=== PATIENT | female | born 1980 | race American Indian/Alaskan Native ===

== ENCOUNTER 2016-06-26 11:57 | Emergency (ER) | payer MEDICAID ==
[2016-06-26 12:49] LABS: Basophils % (Auto) 0.2 % (0.0-1.8); Eosinophils % (Auto) 2.2 % (0.0-4.3); Hematocrit 32.9 % (30.3-42.9); Hemoglobin 10.6 gm/dl (10.1-14.3); Mean Corpuscular HGB Conc 32 % (30-34); Mean Corpuscular Hemoglobin 27 pg (28-32); Mean Corpuscular Volume 85 fl (79-97); Platelet Count 355 K/mm3 (140-440); Red Blood Count 3.87 M/mm3 (3.65-5.03); White Blood Count 6.5 K/mm3 (4.5-11.0)
[2016-06-26 13:02] LABS: Albumin 3.8 g/dL (3.9-5); Albumin/Globulin Ratio 1.3 %; Alkaline Phosphatase 49 units/L (35-129); Anion Gap 18 mmol/L; Bilirubin,Total < 0.20 mg/dL (0.1-1.2); Blood Urea Nitrogen 9 mg/dL (7-17); Calcium 9.3 mg/dL (8.4-10.2); Carbon Dioxide 24 mmol/L (22-30); Chloride 103.7 mmol/L (98-107); Glucose 94 mg/dL (65-100); Lipase 13 units/L (13-60); Potassium 4.3 mmol/L (3.6-5.0); Sodium 141 mmol/L (137-145); Total Protein 6.8 g/dL (6.3-8.2)
[2016-06-26 13:13] LABS: Alanine Aminotransferase < 5 units/L (7-56)
[2016-06-26 15:26] LABS: Bilirubin,Urine NEG (Negative); Blood,Urine NEG (Negative); Ketones,Urine NEG (Negative); Leukocyte Esterase,Urine NEG (Negative); Mucus,Urine FEW /HPF; Nitrite,Urine POS (Negative); Protein,Urine <15 mg/dL mg/dL (Negative); Urobilinogen,Urine < 2.0 mg/dL (<2.0)
[2016-06-26] MEDS ORDERED: PEPCID PO ONE (16:57)
[2016-06-26] MEDS ORDERED: NORCO 5/325 PO ONE (16:57)
[2016-06-26] MEDS ORDERED: LIDOCAINE VISCOUS 2% PO ONE (16:57)
[2016-06-26] MEDS ORDERED: ALUM-MAG HYDROX-SIMETH 200-200-20MG/5ML PO ONE (16:57)
--- NOTE | 2016-06-26 17:02 | Emergency Department Report ---
HPI - General Chief Complaint: Abdominal Pain Time Seen by Provider: 06/26/16 16:47 - HPI HPI: Room 24 The patient is 36-year-old female presenting with a chief complaint of abdominal pain. Patient states she's had intermittent pain in the right upper quadrant for 4 months. Patient states she had her gallbladder removed over 7 years ago. He states the pain initially was yeast with meals now has worsened with meals. Patient denies nausea vomiting or diarrhea. Patient denies fever. The patient states she went to an emergency department 4 months ago symptoms began at had an x-ray performed. Patient states she has not been able to follow -up since. The patient currently gives her pain score of 8/10 Location: Right upper quadrant Duration: Intermittent 4 months Quality: Squeezing Severity: 8/10 Modifying factors: [see above] Context: [see above] Mode of transportation: [not driving] ED Past Medical Hx - Past Medical History Previous Medical History?: No - Surgical History Hx Cholecystectomy: Yes Additional Surgical History: X 4. TUBAL LIGATION - Family History Family history: no significant - Social History Smoking Status: Current Every Day Smoker (1/7 pack per day) Substance Use Type: Alcohol (occasional) - Medications Home Medications: Home Medications Medication Instructions Recorded Confirmed Last Taken Type Famotidine [Pepcid] 20 mg PO BID #30 tablet 06/26/16 Unknown Rx HYDROcodone/APAP 5-325 [[place] 1 - 2 each PO Q6HR PRN #10 tablet 06/26/16 Unknown Rx 5/325] ED Review of Systems ROS: Stated complaint: ABD PAIN Other details as noted in HPI Comment: All other systems reviewed and negative Constitutional: denies: chills, fever Eyes: denies: eye pain, eye discharge, vision change ENT: denies: ear pain, throat pain Respiratory: denies: cough, shortness of breath, wheezing Cardiovascular: denies: chest pain, palpitations Endocrine: no symptoms reported Gastrointestinal: abdominal pain. denies: nausea, vomiting, diarrhea Genitourinary: denies: urgency, dysuria, discharge Musculoskeletal: denies: back pain, joint swelling, arthralgia Skin: denies: rash, lesions Neurological: denies: headache, weakness, paresthesias Psychiatric: denies: anxiety, depression Hematological/Lymphatic: denies: easy bleeding, easy bruising Physical Exam - Physical Exam Vital Signs: Vital Signs 06/26/16 06/26/16 12:22 14:38 Temperature 98.1 F 98.6 F Pulse Rate 75 56 L Respiratory 16 16 Rate Blood Pressure 118/76 Blood Pressure 127/85 [Right] O2 Sat by Pulse 100 96 Oximetry Physical Exam: GENERAL: The patient is well-developed well-nourished female lying on stretcher not appearing to be in acute distress. [] HEENT: Normocephalic. Atraumatic. Extraocular motions are intact. Patient has moist mucous membranes. NECK: Supple. Trachea midline CHEST/LUNGS: Clear to auscultation. There is no respiratory distress noted. HEART/CARDIOVASCULAR: Regular. There is no tachycardia. There is no gallop rub or murmur. ABDOMEN: Abdomen is soft, with mild discomfort to palpation in the right upper quadrant. There is no rebound or guarding. There is no tenderness to palpation elsewhere in the abdomen. Patient has normal bowel sounds. There is no abdominal distention. SKIN: There is no rash. There is no edema. There is no diaphoresis. NEURO: The patient is awake, alert, and oriented. The patient is cooperative. The patient has normal speech MUSCULOSKELETAL: There is no evidence of acute injury. ED Course Vital Signs 06/26/16 06/26/16 12:22 14:38 Temperature 98.1 F 98.6 F Pulse Rate 75 56 L Respiratory 16 16 Rate Blood Pressure 118/76 Blood Pressure 127/85 [Right] O2 Sat by Pulse 100 96 Oximetry ED Medical Decision Making - Lab Data Result diagrams: 06/26/16 12:29 06/26/16 12:29 Laboratory Tests 06/26/16 06/26/16 06/26/16 12:29 12:29 12:29 WBC 6.5 RBC 3.87 Hgb 10.6 Hct 32.9 MCV 85 MCH 27 L MCHC 32 RDW 16.0 H Plt Count 355 Lymph % (Auto) 37.0 H [place] % (Auto) 8.9 H Eos % (Auto) 2.2 Baso % (Auto) 0.2 Lymph # 2.4 [place] # 0.6 Eos # 0.1 Baso # 0.0 Seg Neutrophils % 51.7 Seg Neutrophils # 3.4 Sodium 141 Potassium 4.3 Chloride 103.7 Carbon Dioxide 24 Anion Gap 18 BUN 9 Creatinine 0.5 L Estimated GFR > 60 BUN/Creatinine Ratio 18.00 Glucose 94 Calcium 9.3 Total Bilirubin < 0.20 AST 19 ALT < 5 L Alkaline Phosphatase 49 Total Protein 6.8 Albumin 3.8 L Albumin/Globulin Ratio 1.3 Lipase 13 HCG, Qual Negative Urine Color Urine Turbidity Urine pH Ur Specific [place] Urine Protein Urine Glucose (UA) Urine Ketones Urine Blood Urine Nitrite Urine Bilirubin Urine Urobilinogen Ur Leukocyte Esterase Urine WBC (Auto) Urine RBC (Auto) U Epithel Cells (Auto) Amorphous Crystals Urine Mucus 06/26/16 14:45 WBC RBC Hgb Hct MCV MCH MCHC RDW Plt Count Lymph % (Auto) [place] % (Auto) Eos % (Auto) Baso % (Auto) Lymph # [place] # Eos # Baso # Seg Neutrophils % Seg Neutrophils # Sodium Potassium Chloride Carbon Dioxide Anion Gap BUN Creatinine Estimated GFR BUN/Creatinine Ratio Glucose Calcium Total Bilirubin AST ALT Alkaline Phosphatase Total Protein Albumin Albumin/Globulin Ratio Lipase HCG, Qual Urine Color Yellow Urine Turbidity Cloudy Urine pH 7.0 Ur Specific [place] 1.017 Urine Protein <15 mg/dl Urine Glucose (UA) Neg Urine Ketones Neg Urine Blood Neg Urine Nitrite Pos Urine Bilirubin Neg Urine Urobilinogen < 2.0 Ur Leukocyte Esterase Neg Urine WBC (Auto) 0.0 Urine RBC (Auto) 14.0 U Epithel Cells (Auto) 3.0 Amorphous Crystals Few Urine Mucus Few - Radiology Data Radiology results: image reviewed (abdominal x-ray) interpreted by me: Abdominal x-ray upright-no free air - Differential Diagnosis peptic ulcer disease, gastritis, bowel perforation Critical care attestation.: If time is entered above; I have spent that time in minutes in the direct care of this critically ill patient, excluding procedure time. ED Disposition Clinical Impression: Right upper quadrant abdominal pain Disposition: DISCHARGED TO HOME OR SELFCARE Is pt being admited?: No Does the pt Need Aspirin: No Condition: Stable Instructions: Peptic Ulcer (ED), Abdominal Pain (ED) Additional Instructions: Return to the emergency department immediately should you develop worsening symptoms, fever, inability to tolerate food or liquid or any other concerns. Prescriptions: Famotidine [Pepcid] 20 mg PO BID #30 tablet HYDROcodone/APAP 5-325 [[place] 5/325] 1 - 2 each PO Q6HR PRN #10 tablet PRN Reason: Pain Referrals: ELIZABETH EASTMAN MD [Staff Physician] - 3-5 Days (Dr. Eastman is a primary physician. Please follow up with him to be established as a patient.) GRIFFIN SHEPARD MD [Staff Physician] - 3-5 Days (Dr. 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 Please follow up with him for further evaluation) Time of Disposition: 17:40
[2016-06-26 18:01] VITALS: BP 133/82
--- NOTE | 2016-06-27 09:51 | XRay Report ---
SUPINE KUB: History: Right upper quadrant abdominal pain. The abdominal gas pattern is unremarkable. No masses or organomegaly is identified and there is no gross evidence of free air or fluid. No significant soft tissue calcifications are noted. Cholecystectomy changes are noted. IMPRESSION: Normal study.
== END 2016-06-26 18:01 | disposition home or self-care (01) ==
LOC: ED 11:57
DX: R10.11 Right upper quadrant pain (principal); F17.200 Nicotine dependence, unspecified, uncomplicated; Z90.49 Acquired absence of other specified parts of digestive tract
CPT/HCPCS: 36415; 74000; 80053; 81001; 83690; 84703; 85025; 99284

== ENCOUNTER 2018-07-06 15:04 | Emergency (ER) | payer MEDICAID ==
[2018-07-06 15:46] VITALS: BP 123/79
--- NOTE | 2018-07-06 15:48 | Emergency Department Report ---
ED ENT HPI - General Chief complaint: Earache Stated complaint: EARACHE/HEADACHE Time Seen by Provider: 07/06/18 15:43 Source: patient Mode of arrival: Ambulatory Limitations: No Limitations - History of Present Illness Initial comments: This is a 38-year-old female nontoxic well in appearance with no signs of distress presents to the ED with complaint of right earache. Patient denies any hearing loss. Denies any mastoid tenderness. Denies any fever, chills, headache, nausea, vomiting, chest pain or SOB. Denies any other complaints. Denies any allergies. MD complaint: ear pain -: days(s) (1) Location: R ear Severity: mild Severity scale (0 -10): 8 Quality: aching Consistency: constant Improves with: none Worsens with: none Associated Symptoms: denies: fever, cough, gum swelling, toothache, pain with swallowing, sore throat, tinnitus, hearing loss, discharge from ear, rhinorrhea - Related Data Previous Rx's Medication Instructions Recorded Last Taken Type Famotidine [Pepcid] 20 mg PO BID #30 tablet 06/26/16 Unknown Rx HYDROcodone/APAP 5-325 [[place] 1 - 2 each PO Q6HR PRN #10 tablet 06/26/16 Unknown Rx 5/325] Amoxicillin [Amoxicillin TAB] 875 mg PO BID #20 tablet 07/06/18 Unknown Rx Ibuprofen [Motrin] 600 mg PO Q8H PRN #20 tablet 07/06/18 Unknown Rx Allergies Allergy/AdvReac Type Severity Reaction Status Date / Time No Known Allergies Allergy Unverified 06/26/16 12:21 ED Dental HPI - General Chief complaint: Earache Stated complaint: EARACHE/HEADACHE Time Seen by Provider: 07/06/18 15:43 Source: patient Mode of arrival: Ambulatory Limitations: No Limitations - Related Data Previous Rx's Medication Instructions Recorded Last Taken Type Famotidine [Pepcid] 20 mg PO BID #30 tablet 06/26/16 Unknown Rx HYDROcodone/APAP 5-325 [[place] 1 - 2 each PO Q6HR PRN #10 tablet 06/26/16 Unknown Rx 5/325] Amoxicillin [Amoxicillin TAB] 875 mg PO BID #20 tablet 07/06/18 Unknown Rx Ibuprofen [Motrin] 600 mg PO Q8H PRN #20 tablet 07/06/18 Unknown Rx Allergies Allergy/AdvReac Type Severity Reaction Status Date / Time No Known Allergies Allergy Unverified 06/26/16 12:21 ED Review of Systems ROS: Stated complaint: EARACHE/HEADACHE Other details as noted in HPI Constitutional: denies: chills, fever Eyes: denies: eye pain, eye discharge, vision change ENT: ear pain. denies: throat pain Respiratory: denies: cough, shortness of breath, wheezing Cardiovascular: denies: chest pain, palpitations Endocrine: no symptoms reported Gastrointestinal: denies: abdominal pain, nausea, diarrhea Genitourinary: denies: urgency, dysuria, discharge Musculoskeletal: denies: back pain, joint swelling, arthralgia Skin: denies: rash, lesions Neurological: denies: headache, weakness, paresthesias Psychiatric: denies: anxiety, depression Hematological/Lymphatic: denies: easy bleeding, easy bruising ED Past Medical Hx - Past Medical History Previous Medical History?: No - Surgical History Past Surgical History?: Yes Hx Cholecystectomy: Yes Additional Surgical History: X 4. TUBAL LIGATION - Social History Smoking Status: Current Every Day Smoker (1/7 pack per day) Substance Use Type: Alcohol (occasional) - Medications Home Medications: Home Medications Medication Instructions Recorded Confirmed Last Taken Type Famotidine [Pepcid] 20 mg PO BID #30 tablet 06/26/16 Unknown Rx HYDROcodone/APAP 5-325 [[place] 1 - 2 each PO Q6HR PRN #10 tablet 06/26/16 Unknown Rx 5/325] Amoxicillin [Amoxicillin TAB] 875 mg PO BID #20 tablet 07/06/18 Unknown Rx Ibuprofen [Motrin] 600 mg PO Q8H PRN #20 tablet 07/06/18 Unknown Rx ED Physical Exam - General Limitations: No Limitations General appearance: alert, in no apparent distress - Head Head exam: Present: atraumatic, normocephalic - Eye Eye exam: Present: normal appearance - Expanded ENT Exam Expanded Ear exam: Present: normal external inspection TM/Canal exam: Erythema: Right TM, Bulging: Right TM Mouth exam: Present: normal external inspection. Absent: drooling, trismus, muffled voice Teeth exam: Present: normal inspection Throat exam: Positive: normal inspection - Neck Neck exam: Present: normal inspection, full ROM - Extremities Exam Extremities exam: Present: normal inspection, full ROM - Back Exam Back exam: Present: normal inspection, full ROM - Neurological Exam Neurological exam: Present: alert, oriented X3 - Psychiatric Psychiatric exam: Present: normal affect, normal mood ED Course - Reevaluation(s) Reevaluation #1: 07/06/18 15:46 Patient is speaking in full sentences with no signs of distress noted. ED Medical Decision Making - Medical Decision Making Patient was instructed to Follow-up with a primary care doctor in 3-5 days or if symptoms worsen and continue return to emergency room as soon as possible. At time of discharge, the patient does not seem toxic or ill in appearance. No acute signs of distress noted. Patient agrees to discharge treatment plan of care. No further questions noted by the patient. Critical care attestation.: If time is entered above; I have spent that time in minutes in the direct care of this critically ill patient, excluding procedure time. ED Disposition Clinical Impression: Right otitis media Disposition: DC-01 TO HOME OR SELFCARE Is pt being admited?: No Does the pt Need Aspirin: No Condition: Stable Instructions: Otitis Media (ED) Additional Instructions: Follow-up with a primary care doctor in 3-5 days or if symptoms worsen and continue return to the emergency department as soon as possible. Prescriptions: Amoxicillin [Amoxicillin TAB] 875 mg PO BID #20 tablet Ibuprofen [Motrin] 600 mg PO Q8H PRN #20 tablet PRN Reason: Pain Referrals: PRIMARY CARE, [Referring] - 3-5 Days ELIZABETH REID MD [Staff Physician] - 3-5 Days [facility] [Outside] - 3-5 Days [facility] [Outside] - 3-5 Days Forms: Work/School Release Form(ED)
== END 2018-07-06 16:03 | disposition home or self-care (01) ==
LOC: ED 15:04
DX: H66.91 Otitis media, unspecified, right ear (principal); F17.200 Nicotine dependence, unspecified, uncomplicated; Z90.49 Acquired absence of other specified parts of digestive tract; Z98.51 Tubal ligation status
CPT/HCPCS: 99282

== ENCOUNTER 2018-10-25 09:26 | Emergency (ER) | payer SELFPAY ==
[2018-10-25 09:32] VITALS: BP 137/88
--- NOTE | 2018-10-25 11:19 | Emergency Department Report ---
ED Upper Extremity Inj HPI - General Chief Complaint: Extremity Injury, Upper Stated Complaint: BI HAND NUMB Time Seen by Provider: 10/25/18 10:10 Source: patient Mode of arrival: Ambulatory Limitations: No Limitations - History of Present Illness Initial Comments: This is a 38-year-old female nontoxic, well nourished in appearance, no acute signs of distress presents to the ED with c/o of intermittent acute on chronic bilateral wrist pain and tingling/numbness sensation to bilateral 1st, 2nd and 3rd fingers. Patient denies any trauma. Patient denies any fever, chills, nausea, vomiting, chest pain, shortness of breath, headache, stiff neck. Patient denies any joint swelling or joint redness. 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 Patient denies decreased range of motion. Patient denies any allergies or significant past medical history. MD Complaint: Injury to:: left, right, wrist -: year(s) Other Extremity Injury: Wrist: Left, Right Other Injuries: none Severity scale (0 -10): 3 Improves With: immobilization Worsens With: movement of extremity Associated Symptoms: denies other symptoms. denies: weakness, numbness, neck pain, suspects foreign body, nausea/vomiting, heard/felt popping sensat - Related Data Previous Rx's Medication Instructions Recorded Last Taken Type Famotidine [Pepcid] 20 mg PO BID #30 tablet 06/26/16 Unknown Rx HYDROcodone/APAP 5-325 [[place] 1 - 2 each PO Q6HR PRN #10 tablet 06/26/16 Unknown Rx 5/325] Amoxicillin [Amoxicillin TAB] 875 mg PO BID #20 tablet 07/06/18 Unknown Rx Ibuprofen [Motrin] 600 mg PO Q8H PRN #20 tablet 07/06/18 Unknown Rx Ibuprofen [Motrin] 600 mg PO Q8H PRN #20 tablet 10/25/18 Unknown Rx Allergies Allergy/AdvReac Type Severity Reaction Status Date / Time No Known Allergies Allergy Unverified 06/26/16 12:21 ED Review of Systems ROS: Stated complaint: BI HAND NUMB Other details as noted in HPI Constitutional: denies: chills, fever Eyes: denies: eye pain, eye discharge, vision change ENT: denies: ear pain, throat pain Respiratory: denies: cough, shortness of breath, wheezing Cardiovascular: denies: chest pain, palpitations Endocrine: no symptoms reported Gastrointestinal: denies: abdominal pain, nausea, diarrhea Genitourinary: denies: urgency, dysuria, discharge Musculoskeletal: arthralgia. denies: back pain, joint swelling Skin: denies: rash, lesions Neurological: denies: headache, weakness, paresthesias Psychiatric: denies: anxiety, depression Hematological/Lymphatic: denies: easy bleeding, easy bruising ED Past Medical Hx - Past Medical History Previous Medical History?: No - Surgical History Past Surgical History?: Yes Hx Cholecystectomy: Yes Additional Surgical History: X 4. TUBAL LIGATION - Social History Smoking Status: Current Every Day Smoker Substance Use Type: None - Medications Home Medications: Home Medications Medication Instructions Recorded Confirmed Last Taken Type Famotidine [Pepcid] 20 mg PO BID #30 tablet 06/26/16 Unknown Rx HYDROcodone/APAP 5-325 [[place] 1 - 2 each PO Q6HR PRN #10 tablet 06/26/16 Unknown Rx 5/325] Amoxicillin [Amoxicillin TAB] 875 mg PO BID #20 tablet 07/06/18 Unknown Rx Ibuprofen [Motrin] 600 mg PO Q8H PRN #20 tablet 07/06/18 Unknown Rx Ibuprofen [Motrin] 600 mg PO Q8H PRN #20 tablet 10/25/18 Unknown Rx ED Physical Exam - General Limitations: No Limitations General appearance: alert, in no apparent distress - Head Head exam: Present: atraumatic, normocephalic - Extremities Exam Extremities exam: Present: normal inspection, full ROM, normal capillary refill. Absent: tenderness, joint swelling, calf tenderness - Expanded Upper Extremity Exam Left General: Present: normal inspection (bilateral exam) Shoulder Exam: Present: normal inspection (bilateral exam), full ROM (bilateral exam). Absent: tenderness (bilateral exam), swelling (bilateral exam) Upper Arm exam: Present: normal inspection (bilateral exam), full ROM (bilateral exam). Absent: tenderness (bilateral exam), swelling (bilateral exam) Elbow exam: Present: normal inspection (bilateral exam), full ROM (bilateral exam). Absent: tenderness (bilateral exam), swelling (bilateral exam) Forearm Wrist exam: Present: normal inspection (bilateral exam), full ROM (bilateral exam). Absent: tenderness (bilateral exam), swelling (bilateral exam), abrasion (bilateral exam), laceration (bilateral exam), ecchymosis (bilateral exam), deformity (bilateral exam), crepidus (bilateral exam), dislocation (bilateral exam), erythema (bilateral exam), tenderness over anatomical snuff box (bilateral exam), pain with axial thumb loading (bilateral exam) Hand Wrist exam: Present: normal inspection (bilateral exam), full ROM (bilateral exam). Absent: tenderness (bilateral exam), swelling (bilateral exam) Vascular: Present: vascular compromise (bilateral exam), normal capillary refill (bilateral exam) - Back Exam Back exam: Present: normal inspection, full ROM - Neurological Exam Neurological exam: Present: alert, oriented X3, normal gait - Psychiatric Psychiatric exam: Present: normal affect, normal mood - Skin Skin exam: Present: warm, dry, intact, normal color. Absent: rash - Other Other exam information: Positive phalens test to bilateral wrist ED Course Vital Signs 10/25/18 09:29 Temperature 97.9 F Pulse Rate 82 Respiratory 18 Rate Blood Pressure 137/88 O2 Sat by Pulse 99 Oximetry - Reevaluation(s) Reevaluation #1: 10/25/18 11:18 Patient is speaking in full sentences with no signs of distress noted. ED Medical Decision Making - Medical Decision Making This is a 38-year-old female that presents with carpal tunnel to bilateral wrists Patient is stable and was examined by me. I referred patient to an orthopedic doctor for further evaluation for possible MRI. Patient does have normal gait with no tenderness and no joint swelling. No ecchymosis. no joint redness or swelling. Not warm to touch. No signs of cellulites present. Patient was instructed to RICE therapy. Patient is discharged with Motrin. At time of discharge, the patient does not seem toxic or ill in appearance. No acute signs of distress noted. Patient agrees to discharge treatment plan of care. No further questions noted by the patient. Critical care attestation.: If time is entered above; I have spent that time in minutes in the direct care of this critically ill patient, excluding procedure time. ED Disposition Clinical Impression: Bilateral carpal tunnel syndrome Disposition: DC-01 TO HOME OR SELFCARE Is pt being admited?: No Does the pt Need Aspirin: No Condition: Stable Instructions: Carpal Tunnel Syndrome (ED) Additional Instructions: Follow-up with a orthopedic doctor in 3-5 days or if symptoms worsen and continue return to emergency room as soon as possible. Prescriptions: Ibuprofen [Motrin] 600 mg PO Q8H PRN #20 tablet PRN Reason: Pain Referrals: PRIMARY CARE, [Referring] - 3-5 Days SHAWNA BARROSO MD [Staff Physician] - 3-5 Days [facility] [Outside] - 3-5 Days Forms: Work/School Release Form(ED)
== END 2018-10-25 11:51 | disposition home or self-care (01) ==
LOC: ED 09:26
DX: G56.03 Carpal tunnel syndrome, bilateral upper limbs (principal)
CPT/HCPCS: 99282

== ENCOUNTER 2019-05-07 02:59 | Emergency (ER) | payer SELFPAY ==
--- NOTE | 2019-05-07 06:05 | Emergency Department Report ---
ED General Adult HPI - General Chief complaint: Urogenital-Female Stated complaint: BILATERAL BREAST SORENESS Source: patient Mode of arrival: Ambulatory Limitations: No Limitations - History of Present Illness Initial comments: Patient is a 39-year-old -Swiss female who presents to the ED with complaint of persistent bilateral breast pain for the last 1 week. Patient denies traumatic injury, nausea, vomiting, chest pain, shortness of breath, fever, chills, dizziness, headache, cough, sore throat, nasal and sinus congestion, palpitations, abdominal pain or diarrhea. MD Complaint: Bilateral breast pain -: Sudden, week(s) (1) Location: chest (bilateral breast) Radiation: non-radiation Severity scale (0 -10): 2 Quality: aching, sharp Consistency: constant Improves with: none Worsens with: none Associated Symptoms: denies other symptoms. denies: confusion, chest pain, cough, diaphoresis, fever/chills, headaches, loss of appetite, malaise, nausea/vomiting, rash, seizure, shortness of breath, syncope, weakness Treatments Prior to Arrival: none - Related Data Previous Rx's Medication Instructions Recorded Last Taken Type Famotidine [Pepcid] 20 mg PO BID #30 tablet 06/26/16 Unknown Rx HYDROcodone/APAP 5-325 [[place] 1 - 2 each PO Q6HR PRN #10 tablet 06/26/16 Unknown Rx 5/325] Amoxicillin [Amoxicillin TAB] 875 mg PO BID #20 tablet 07/06/18 Unknown Rx Ibuprofen [Motrin] 600 mg PO Q8H PRN #20 tablet 07/06/18 Unknown Rx Ibuprofen [Motrin] 600 mg PO Q8H PRN #20 tablet 10/25/18 Unknown Rx Ibuprofen [Motrin] 800 mg PO Q8HR PRN #30 tablet 05/07/19 Unknown Rx Allergies Allergy/AdvReac Type Severity Reaction Status Date / Time No Known Allergies Allergy Unverified 06/26/16 12:21 ED Review of Systems ROS: Stated complaint: BILATERAL BREAST SORENESS Other details as noted in HPI Constitutional: denies: chills, fever Eyes: denies: eye pain, eye discharge, vision change ENT: denies: ear pain, throat pain Respiratory: denies: cough, shortness of breath, wheezing Cardiovascular: other (Bilateral breast pain). denies: chest pain, palpitations Endocrine: no symptoms reported Gastrointestinal: denies: abdominal pain, nausea, diarrhea Genitourinary: denies: urgency, dysuria, discharge Musculoskeletal: denies: back pain, joint swelling, arthralgia Skin: denies: rash, lesions Neurological: denies: headache, weakness, paresthesias Psychiatric: denies: anxiety, depression Hematological/Lymphatic: denies: easy bleeding, easy bruising ED Past Medical Hx - Past Medical History Previous Medical History?: No - Surgical History Past Surgical History?: Yes Hx Cholecystectomy: Yes Additional Surgical History: X 4. TUBAL LIGATION - Social History Smoking Status: Current Every Day Smoker Substance Use Type: Marijuana - Medications Home Medications: Home Medications Medication Instructions Recorded Confirmed Last Taken Type Famotidine [Pepcid] 20 mg PO BID #30 tablet 06/26/16 Unknown Rx HYDROcodone/APAP 5-325 [[place] 1 - 2 each PO Q6HR PRN #10 tablet 06/26/16 Unknown Rx 5/325] Amoxicillin [Amoxicillin TAB] 875 mg PO BID #20 tablet 07/06/18 Unknown Rx Ibuprofen [Motrin] 600 mg PO Q8H PRN #20 tablet 07/06/18 Unknown Rx Ibuprofen [Motrin] 600 mg PO Q8H PRN #20 tablet 10/25/18 Unknown Rx Ibuprofen [Motrin] 800 mg PO Q8HR PRN #30 tablet 05/07/19 Unknown Rx ED Physical Exam - General Limitations: No Limitations General appearance: alert, in no apparent distress - Head Head exam: Present: atraumatic, normocephalic, normal inspection - Eye Eye exam: Present: normal appearance, PERRL, EOMI Pupils: Present: normal accommodation - ENT ENT exam: Present: normal exam, normal orophraynx, mucous membranes moist, TM's normal bilaterally, normal external ear exam - Neck Neck exam: Present: normal inspection, full ROM - Respiratory Respiratory exam: Present: normal lung sounds bilaterally, chest wall tenderness (Palpable bilateral breast tenderness). Absent: respiratory distress, wheezes, rales, rhonchi - Cardiovascular Cardiovascular Exam: Present: regular rate, normal rhythm, normal heart sounds, other (Female RN design assembler present during the breast exam). Absent: systolic murmur, diastolic murmur, rubs, gallop - GI/Abdominal GI/Abdominal exam: Present: soft, normal bowel sounds. Absent: tenderness, guarding, hyperactive bowel sounds, hypoactive bowel sounds, organomegaly - Extremities Exam Extremities exam: Present: normal inspection, full ROM, normal capillary refill - Back Exam Back exam: Present: normal inspection, full ROM. Absent: tenderness, CVA tenderness (R), muscle spasm, vertebral tenderness - Neurological Exam Neurological exam: Present: alert, oriented X3, CN II-XII intact, normal gait, reflexes normal - Psychiatric Psychiatric exam: Present: normal affect, normal mood - Skin Skin exam: Present: warm, dry, intact, normal color. Absent: rash ED Medical Decision Making - Medical Decision Making This is a 39-year-old female who presented to the ED with complaint of acute onset persistent nontraumatic bilateral breast pain for 1 week. In the ED, patient is alert and oriented x3 and is not in distress. Patient was discharged home on medications for pain and advised to follow-up with ADULT PROTECTIVE CASEWORKER physician in 5 to 7 days for reevaluation. Patient was also advised to consider having a mammogram to rule out any life-threatening emergency. Patient was advised to return to the ED immediately if symptoms get worse. - Differential Diagnosis Fibrocystic breast disease; Fibrocystic breast changes Critical care attestation.: If time is entered above; I have spent that time in minutes in the direct care of this critically ill patient, excluding procedure time. ED Disposition Clinical Impression: Fibrocystic breast changes of both breasts, Pain of both breasts Disposition: TO HOME OR SELFCARE Is pt being admited?: No Does the pt Need Aspirin: No Condition: Stable Instructions: Chest Pain (ED) Additional Instructions: Take pain medication as needed, follow-up with your ADULT PROTECTIVE CASEWORKER physician as advised. Return to the ED immediately if symptoms get worse. Prescriptions: Ibuprofen [Motrin] 800 mg PO Q8HR PRN #30 tablet PRN Reason: Pain , Severe (7-10) Referrals: JUAN DANIEL ELIAS MD [Staff Physician] - 3-5 Days Time of Disposition: 06:02 Print Language: AMERICAN
[2019-05-07 06:12] VITALS: BP 125/85
== END 2019-05-07 06:10 | disposition home or self-care (01) ==
LOC: ED 02:59
DX: N60.12 Diffuse cystic mastopathy of left breast (principal); N60.11 Diffuse cystic mastopathy of right breast; F17.200 Nicotine dependence, unspecified, uncomplicated; F12.10 Cannabis abuse, uncomplicated; Z98.51 Tubal ligation status; Z98.890 Other specified postprocedural states; Z79.899 Other long term (current) drug therapy
CPT/HCPCS: 99282

== ENCOUNTER 2020-11-30 17:21 | Emergency (ER) | payer MEDICAID, OTHER ==
[2020-11-30] MEDS ORDERED: IBUPROFEN 600 MG TAB PO ONE (19:46)
[2020-11-30] MEDS ORDERED: ACETAMINOPHEN 500 MG TAB PO ONE (19:46)
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
[2020-11-30 21:21] VITALS: BP 127/78
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
== END 2020-11-30 22:23 | disposition home or self-care (01) ==
LOC: ED 17:21
DX: M62.830 Muscle spasm of back (principal); S43.91XA Sprain of unspecified parts of right shoulder girdle, initial encounter; Z90.49 Acquired absence of other specified parts of digestive tract; F17.200 Nicotine dependence, unspecified, uncomplicated; V89.2XXA Person injured in unspecified motor-vehicle accident, traffic, initial encounter; Y93.89 Activity, other specified; Y92.89 Other specified places as the place of occurrence of the external cause; Y99.8 Other external cause status
CPT/HCPCS: 72040; 99283

== ENCOUNTER 2021-02-25 21:56 | Emergency (ER) | payer MEDICAID ==
[2021-02-25 23:52] VITALS: BP 136/96
[2021-02-26] MEDS ORDERED: FAMOTIDINE 20 MG TAB PO ONE (02:04)
[2021-02-26] MEDS ORDERED: ONDANSETRON 4 MG ODT TAB PO ONE (02:04)
[2021-02-26] MEDS ORDERED: IBUPROFEN 600 MG TAB PO ONE (02:04)
[2021-02-26] MEDS ORDERED: ACETAMINOPHEN 500 MG TAB PO ONE (02:04)
--- NOTE | 2021-02-26 02:53 | XRay Report ---
CHEST 1 VIEW INDICATION / CLINICAL INFORMATION: COUGH, FEVER, CHILLS. COMPARISON: None available. FINDINGS: SUPPORT DEVICES: None. HEART / MEDIASTINUM: No significant abnormality. LUNGS / PLEURA: There is slight interstitial prominence throughout both lungs. Appearance is nonspeci fic, but can be seen with very mild viral pneumonia. No focal consolidation noted. No pneumothorax. ADDITIONAL FINDINGS: No significant additional findings. IMPRESSION: 1. Slight bilateral interstitial prominence a nonspecific. Appearance could be due to mild viral pneu monia and correlation with Covid status is recommended. Signer Name: Sylvia Franklin MD Signed: 02/26/2021 2:49 AM Workstation Name: [id number]
--- NOTE | 2021-02-26 04:27 | Emergency Department Report ---
- General Chief Complaint: Upper Respiratory Infection Stated Complaint: BODY SORE AND LIGHTHEADED Source: patient Mode of arrival: Ambulatory Limitations: No Limitations - History of Present Illness Initial Comments: Patient is a 40-year-old -Maltese female with no past medical history presented to the ED with complaint of acute onset persistent nasal and sinus congestion, frontal sinus pressure, diffuse body aches and pains and dry cough with fever and chills for the last 3 days, worse in the last 12 hours. Patient states that she has not been able to sleep because of worsening chills and fever and body aches and pains. Patient states that no one else at home is at similar symptoms. Patient also states that she is fully vaccinated against COVID-19 viral infection. Patient denies dizziness, syncope, nausea, vomiting, diarrhea, dysuria, urinary frequency and urgency, chest pain, shortness of breath, abdominal pain or sore throat. MD Complaint: cough, rhinorrhea, nasal congestion, sinus pain, other (Diffuse body aches and pains, fever and chills) -: Sudden, days(s) (3) Severity: severe Severity scale (0 -10): 7 Quality: sharp, aching Consistency: constant Improves With: nothing Worsens With: nothing Associated Symptoms: denies other symptoms, fever, chills, myalgias, headache, rhinorrhea, nasal congestion, cough. denies: diaphoresis, sore throat, stiff neck, chest pain, abdominal pain, nausea, vomiting, diarrhea, dysuria, rash, confusion, right sweats, weight loss, hoarseness, ear pain, other - Related Data Previous Rx's Medication Instructions Recorded Last Taken Type Famotidine [Pepcid] 20 mg PO BID #30 tablet 06/26/16 Unknown Rx HYDROcodone/APAP 5-325 [[place] 1 - 2 each PO Q6HR PRN #10 tablet 06/26/16 Unknown Rx 5/325] Amoxicillin [Amoxicillin TAB] 875 mg PO BID #20 tablet 07/06/18 Unknown Rx Ibuprofen [Motrin] 600 mg PO Q8H PRN #20 tablet 07/06/18 Unknown Rx Ibuprofen [Motrin] 600 mg PO Q8H PRN #20 tablet 10/25/18 Unknown Rx Baclofen 20 mg PO Q12H PRN #20 tablet 11/30/20 Unknown Rx Ibuprofen [Motrin 800 MG tab] 800 mg PO Q8HR PRN #30 tablet 11/30/20 Unknown Rx Acetaminophen [Tylenol] 500 mg PO Q6HR PRN #40 tablet 02/26/21 Unknown Rx Azithromycin [Zithromax Z-HERMES] 250 mg PO DAILY #6 tablet 02/26/21 Unknown Rx Benzonatate [Tessalon Perles] 100 mg PO Q8HR #30 capsule 02/26/21 Unknown Rx Cetirizine HCl [Zyrtec 10mg tab] 10 mg PO DAILY #30 tablet 02/26/21 Unknown Rx Promethazine [Phenergan] 25 mg PO Q6HR PRN #30 tab 02/26/21 Unknown Rx Allergies Allergy/AdvReac Type Severity Reaction Status Date / Time No Known Allergies Allergy Unverified 06/26/16 12:21 ED Review of Systems ROS: Stated complaint: BODY SORE AND LIGHTHEADED Other details as noted in HPI Constitutional: chills, fever, malaise Eyes: denies: eye pain, eye discharge, vision change ENT: congestion. denies: ear pain, throat pain Respiratory: cough. denies: shortness of breath, wheezing Cardiovascular: denies: chest pain, palpitations Endocrine: no symptoms reported Gastrointestinal: denies: abdominal pain, nausea, diarrhea Genitourinary: denies: urgency, dysuria, discharge Musculoskeletal: arthralgia, myalgia. denies: back pain, joint swelling Skin: denies: rash, lesions Neurological: denies: headache, weakness, paresthesias Psychiatric: denies: anxiety, depression Hematological/Lymphatic: denies: easy bleeding, easy bruising ED Past Medical Hx - Past Medical History Previous Medical History?: No - Surgical History Past Surgical History?: Yes Hx Cholecystectomy: Yes Additional Surgical History: X 4. TUBAL LIGATION. SALLY - Social History Smoking Status: Current Some Day Smoker - Medications Home Medications: Home Medications Medication Instructions Recorded Confirmed Last Taken Type Famotidine [Pepcid] 20 mg PO BID #30 tablet 06/26/16 Unknown Rx HYDROcodone/APAP 5-325 [[place] 1 - 2 each PO Q6HR PRN #10 tablet 06/26/16 Unknown Rx 5/325] Amoxicillin [Amoxicillin TAB] 875 mg PO BID #20 tablet 07/06/18 Unknown Rx Ibuprofen [Motrin] 600 mg PO Q8H PRN #20 tablet 07/06/18 Unknown Rx Ibuprofen [Motrin] 600 mg PO Q8H PRN #20 tablet 10/25/18 Unknown Rx Baclofen 20 mg PO Q12H PRN #20 tablet 11/30/20 Unknown Rx Ibuprofen [Motrin 800 MG tab] 800 mg PO Q8HR PRN #30 tablet 11/30/20 Unknown Rx Acetaminophen [Tylenol] 500 mg PO Q6HR PRN #40 tablet 02/26/21 Unknown Rx Azithromycin [Zithromax Z-HERMES] 250 mg PO DAILY #6 tablet 02/26/21 Unknown Rx Benzonatate [Tessalon Perles] 100 mg PO Q8HR #30 capsule 02/26/21 Unknown Rx Cetirizine HCl [Zyrtec 10mg tab] 10 mg PO DAILY #30 tablet 02/26/21 Unknown Rx Promethazine [Phenergan] 25 mg PO Q6HR PRN #30 tab 02/26/21 Unknown Rx ED Physical Exam - General Limitations: No Limitations General appearance: alert, in no apparent distress - Head Head exam: Present: atraumatic, normocephalic, normal inspection - Eye Eye exam: Present: normal appearance, PERRL, EOMI Pupils: Present: normal accommodation - ENT ENT exam: Present: mucous membranes moist, TM's normal bilaterally, normal external ear exam, other (Grossly congested nasal passages; palpable frontal sinus tenderness) - Neck Neck exam: Present: normal inspection, full ROM. Absent: tenderness - Respiratory Respiratory exam: Present: normal lung sounds bilaterally. Absent: respiratory distress, wheezes, rales, rhonchi, chest wall tenderness, accessory muscle use, decreased breath sounds - Cardiovascular Cardiovascular Exam: Present: regular rate, normal rhythm, normal heart sounds. Absent: systolic murmur, diastolic murmur, rubs, gallop - GI/Abdominal GI/Abdominal exam: Present: soft, normal bowel sounds. Absent: tenderness, guarding, rebound, hyperactive bowel sounds - Extremities Exam Extremities exam: Present: normal inspection, full ROM, normal capillary refill - Back Exam Back exam: Present: normal inspection, full ROM. Absent: tenderness, CVA tenderness (R), CVA tenderness (L), muscle spasm, paraspinal tenderness, vertebral tenderness - Neurological Exam Neurological exam: Present: alert, oriented X3, CN II-XII intact, normal gait, reflexes normal - Psychiatric Psychiatric exam: Present: normal affect, normal mood - Skin Skin exam: Present: warm, dry, intact, normal color. Absent: rash ED Course Vital Signs 02/25/21 23:43 Temperature 100.0 F H Pulse Rate 94 H Respiratory 20 Rate Blood Pressure 136/96 [Right] O2 Sat by Pulse 97 Oximetry ED Medical Decision Making - Radiology Data Radiology results: report reviewed, image reviewed [facility] [address] [place] [address] XRay Report Signed Patient: HOWIE CASTILLO MR#: [id number] : 1980 Acct:[id number] Age/Sex: 40 / F ADM Date: 02/25/21 Loc: ED Attending Dr: Ordering Physician: STEPHON MORSE Date of Service: 02/26/21 Procedure(s): XR chest 1V ap Accession Number(s): [id number] cc: STEPHON MORSE Fluoro Time In Minutes: CHEST 1 VIEW INDICATION / CLINICAL INFORMATION: COUGH, FEVER, CHILLS. COMPARISON: None available. FINDINGS: SUPPORT DEVICES: None. HEART / MEDIASTINUM: No significant abnormality. LUNGS / PLEURA: There is slight interstitial prominence throughout both lungs. Appearance is nonspecific, but can be seen with very mild viral pneumonia. No focal consolidation noted. No pneumothorax. ADDITIONAL FINDINGS: No significant additional findings. IMPRESSION: 1. Slight bilateral interstitial prominence a nonspecific. Appearance could be due to mild viral pneumonia and correlation with Covid status is recommended. Signer Name: Sylvia Franklin MD Signed: 02/26/2021 2:49 AM Workstation Name: [id number] Transcribed By: JR Dictated By: Sylvia Franklin MD Electronically Authenticated By: Sylvia Franklin MD Signed Date/Time: 02/26/21248 DD/ 6 TD/TT: - Medical Decision Making This is a 40-year-old -Maltese female with no past medical history presented to the ED with complaint of acute onset persistent nasal and sinus congestion, frontal sinus pressure, diffuse body aches and pains and dry cough with fever and chills for the last 3 days, worse in the last 12 hours. Patient states that she has not been able to sleep because of worsening chills and fever and body aches and pains. Patient states that no one else at home is at similar symptoms. Patient also states that she is fully vaccinated against COVID-19 viral infection. In the ED, patient is alert and oriented x3 and is not in any distress but febrile in triage. Patient was treated for fever and pain in the ED. Chest x-ray showed slight bilateral interstitial prominence a nonspecific. Appearance could be due to mild viral pneumonia and correlation with Covid status is recommended. On reevaluation, patient's fever resolved me dication. Patient felt better, pain is well controlled at this time. Patient will discharge home on medication empirically with antibiotic for suspected bacterial pneumonia. Patient was also encouraged to get tested again for COVID- 19 viral infection in any of the outpatient facilities and if positive self quarantine for 5 days per CDC recommendations. Patient was advised return to the ED immediately if symptoms get worse. - Differential Diagnosis Influenza; pneumonia; bronchitis; sinusitis; URI; COVID-19 Critical care attestation.: If time is entered above; I have spent that time in minutes in the direct care of this critically ill patient, excluding procedure time. ED Disposition Clinical Impression: Acute upper respiratory infection, Flu-like symptoms, Fever and chills Acute frontal sinusitis, unspecified Qualifiers: Recurrence: non-recurrent Qualified Code(s): J01.10 - Acute frontal sinusitis, unspecified Acute bronchitis Qualifiers: Bronchitis organism: other organism Qualified Code(s): J20.8 - Acute bronchitis due to other specified organisms Disposition: 01 HOME / SELF CARE / HOMELESS Is pt being admited?: No Does the pt Need Aspirin: No Condition: Stable Instructions: Acute Bronchitis (ED), Sinusitis, Adult, [id number], Upper Respiratory Infection, Adult, [id number], Acute Bronchitis, Adult, [id number], Fever, Adult, [id number], Cough, Adult, [id number] Additional Instructions: The chest x-ray shows part-time similar to an early developing pneumonia which can be viral or bacterial. Therefore take medication with food, drink plenty of fluids and follow up with your primary care physician in 7-10 days for reevaluation. Return to the ED immediately if symptoms get worse. Ensure that you get tested for COVID-19 viral infection in any of the outpatient facilities and if positive self quarantine for 5 days per CDC recommendation. Otherwise return to the ED immediately if symptoms get worse. Prescriptions: Acetaminophen [Tylenol] 500 mg PO Q6HR PRN #40 tablet PRN Reason: pain and fever Promethazine [Phenergan] 25 mg PO Q6HR PRN #30 tab PRN Reason: Nausea Benzonatate [Tessalon Perles] 100 mg PO Q8HR #30 capsule Azithromycin [Zithromax Z-HERMES] 250 mg PO DAILY #6 tablet Cetirizine HCl [Zyrtec 10mg tab] 10 mg PO DAILY #30 tablet Referrals: [facility] [Provider Group] - 3-5 Days Forms: Work/School Release Form(ED) Time of Disposition: 04:25 Print Language: KAZAKH
== END 2021-02-26 06:01 | disposition home or self-care (01) ==
LOC: ED 21:56
DX: J06.9 Acute upper respiratory infection, unspecified (principal); R50.9 Fever, unspecified; F17.200 Nicotine dependence, unspecified, uncomplicated; Z90.49 Acquired absence of other specified parts of digestive tract
CPT/HCPCS: 71045; 99283; J3490; Q0162